=== PATIENT | male | born 1995 | race Caucasian/White ===

== ENCOUNTER 2018-02-06 14:13 | Inpatient (IN) | payer SELFPAY ==
[2018-02-06] MEDS: NS 1,000 ML IV (14:30)
[2018-02-06] MEDS: CHARCOAL ACTIVATED LIQUID 25 GM/120 ML BTL PO (14:30)
[2018-02-06 14:39] LABS: BASO % 0.4 % (0.0-1.0); EOS # 0.1 10^3/uL (0.0-0.50); EOS % 0.6 % (0.0-3.0); HEMATOCRIT 44.3 % (42.0-52.0); HEMOGLOBIN 14.9 g/dl (13.5-17.5); IMMATURE GRANULOCYTE % 0.2 % (0-3.0); LYMPH # 1.7 10^3/uL (1.5-6.5); LYMPH % 17.7 % (24.0-44.0); MEAN CORPUSCULAR HEMOGLOBIN 29.7 pg (27.0-33.0); MEAN CORPUSCULAR HGB CONC 33.6 g/dl (32.0-36.5); MEAN CORPUSCULAR VOLUME 88.2 fl (80.0-96.0); MONO # 0.8 10^3/uL (0.0-0.8); MONO % 8.4 % (0.0-5.0); NEUTROPHILS % 72.7 % (36.0-66.0); PLATELET COUNT, AUTOMATED 326 10^3/uL (150-450); RED BLOOD COUNT 5.02 10^6/uL (4.30-6.10); RED CELL DISTRIBUTION WIDTH 12.9 % (11.5-14.5); WHITE BLOOD COUNT 9.6 10^3/uL (4.0-10.0)
[2018-02-06 14:51] LABS: INR 0.92; PARTIAL THROMBOPLASTIN TIME 24.4 SECONDS (25.4-37.6); PROTHROMBIN TIME 12.5 SECONDS (12.1-14.4)
[2018-02-06 15:06] LABS: OSMOLALITY SERUM 295 MOSM/KG (275-295)
[2018-02-06 15:15] LABS: ACETAMINOPHEN LEVEL < 2.0 UG/ML (10.0-30.0); ALBUMIN 4.4 GM/DL (3.2-5.2); ALBUMIN/GLOBULIN RATIO 1.26 (1.00-1.93); ALKALINE PHOSPHATASE 61 U/L (45-117); ALT/SGPT 24 U/L (12-78); ANION GAP 9 MEQ/L (8-16); AST/SGOT 15 U/L (7-37); BILIRUBIN,DIRECT 0.2 MG/DL (0.0-0.2); BILIRUBIN,TOTAL 0.6 MG/DL (0.2-1.0); BLOOD UREA NITROGEN 17 MG/DL (7-18); CALCIUM LEVEL 9.3 MG/DL (8.5-10.1); CARBON DIOXIDE LEVEL 25 MEQ/L (21-32); CHLORIDE LEVEL 107 MEQ/L (98-107); CPK CREATINE PHOSPHOKINASE 142 U/L (39-308); CREATININE FOR GFR 0.96 MG/DL (0.70-1.30); ETHYL ALCOHOL (ETHANOL) 0.004 % (0.000-0.010); GLOMERULAR FILTRATION RATE > 60.0 (>60); GLUCOSE, FASTING 101 MG/DL (70-100); POTASSIUM SERUM 3.8 MEQ/L (3.5-5.1); SALICYLATE LEVEL < 1.7 MG/DL (5.0-30.0); SODIUM LEVEL 141 MEQ/L (136-145); TOTAL PROTEIN 7.9 GM/DL (6.4-8.2)
[2018-02-06] MEDS: LORazepam 2 MG/ML VIAL (J2060) IV ×3 (15:33→18:44)
[2018-02-06] MEDS ORDERED: OXAZEPAM 10 MG CAP PO (17:30)
[2018-02-06 17:39] LABS: AMPHETAMINES LEVEL URINE POSITIVE (NEGATIVE); BARBITURATES URINE NEGATIVE (NEGATIVE); BENZODIAZEPINES URINE NEGATIVE (NEGATIVE); CANNABINOIDS URINE NEGATIVE (NEGATIVE); COCAINE METABOLITE URINE NEGATIVE (NEGATIVE); METHADONE URINE NEGATIVE (NEGATIVE); OPIATES URINE NEGATIVE (NEGATIVE); PHENCYCLIDINE URINE NEGATIVE (NEGATIVE)
[2018-02-06 18:00] LABS: CPK CREATINE PHOSPHOKINASE 127 U/L (39-308); MB/CK RELATIVE INDEX 0.94 (< OR =4); TROPONIN I < 0.02 NG/ML (< 0.10)
[2018-02-06] MEDS: OXAZEPAM 10 MG CAP PO (18:28)
[2018-02-06] MEDS: MULTIVITAMIN -ADULT INJECTION 10 ML, THIAMINE INJection 100 MG, FOLIC ACID 1 MG in NS 1... IV (20:20)
[2018-02-06] MEDS: HEPARIN SOD (PORCINE) 5000 UNITS/ML VIAL SC (21:13)
[2018-02-06] MEDS: hydrALAZINE INJ 20 MG/ML VIAL IV (21:13)
[2018-02-06 23:25] LABS: CK-MB VALUE MASS < 1.0 NG/ML (<3.6); CPK CREATINE PHOSPHOKINASE 107 U/L (39-308); MB/CK RELATIVE INDEX 0.93 (< OR =4); TROPONIN I < 0.02 NG/ML (< 0.10)
[2018-02-07] MEDS: hydrALAZINE INJ 20 MG/ML VIAL IV ×6 (00:49→20:50)
[2018-02-07] MEDS: OXAZEPAM 10 MG CAP PO ×5 (00:49→23:38)
[2018-02-07] MEDS: KCL 20MEQ in NS 1000ML 1,000 ML IV ×3 (00:50→18:29)
[2018-02-07] MEDS: NICOTINE POLACRILEX 2 MG GUM PO ×2 (03:14→20:44)
[2018-02-07 06:54] LABS: HEMATOCRIT 43.5 % (42.0-52.0); HEMOGLOBIN 14.3 g/dl (13.5-17.5); MEAN CORPUSCULAR HEMOGLOBIN 29.5 pg (27.0-33.0); MEAN CORPUSCULAR HGB CONC 32.9 g/dl (32.0-36.5); MEAN CORPUSCULAR VOLUME 89.9 fl (80.0-96.0); PLATELET COUNT, AUTOMATED 333 10^3/uL (150-450); RED BLOOD COUNT 4.84 10^6/uL (4.30-6.10); RED CELL DISTRIBUTION WIDTH 12.9 % (11.5-14.5); WHITE BLOOD COUNT 11.7 10^3/uL (4.0-10.0)
[2018-02-07 07:13] LABS: ALBUMIN 4.2 GM/DL (3.2-5.2); ALKALINE PHOSPHATASE 56 U/L (45-117); ALT/SGPT 18 U/L (12-78); ANION GAP 10 MEQ/L (8-16); AST/SGOT 9 U/L (7-37); BILIRUBIN,TOTAL 0.5 MG/DL (0.2-1.0); BLOOD UREA NITROGEN 7 MG/DL (7-18); CALCIUM LEVEL 9.2 MG/DL (8.5-10.1); CARBON DIOXIDE LEVEL 23 MEQ/L (21-32); CHLORIDE LEVEL 108 MEQ/L (98-107); CREATININE FOR GFR 0.84 MG/DL (0.70-1.30); GLOMERULAR FILTRATION RATE > 60.0 (>60); GLUCOSE, FASTING 110 MG/DL (70-100); MAGNESIUM LEVEL 1.9 MG/DL (1.8-2.4); POTASSIUM SERUM 3.2 MEQ/L (3.5-5.1); SODIUM LEVEL 141 MEQ/L (136-145); TOTAL PROTEIN 7.2 GM/DL (6.4-8.2)
[2018-02-07] MEDS: HEPARIN SOD (PORCINE) 5000 UNITS/ML VIAL SC ×2 (07:54→20:41)
[2018-02-07] MEDS: MULTIVITAMINS/MINERALS THERAP 1 TAB PO (07:55)
[2018-02-07] MEDS: FOLIC ACID 1 MG TAB PO (07:55)
[2018-02-07] MEDS: THIAMINE 100 MG TAB PO (07:55)
[2018-02-07] MEDS: POTASSIUM CHLORIDE 10 MEQ SR TABLET PO (07:56)
[2018-02-07 09:17] LABS: CPK CREATINE PHOSPHOKINASE 147 U/L (39-308); MB/CK RELATIVE INDEX 0.68 (< OR =4); TROPONIN I < 0.02 NG/ML (< 0.10)
[2018-02-07] MEDS: LORazepam 2 MG/ML VIAL (J2060) IV (11:31)
[2018-02-08] MEDS ORDERED: SLF 3 ML SYR IV (00:30)
[2018-02-08] MEDS: hydrALAZINE INJ 20 MG/ML VIAL IV ×6 (01:00→21:00)
[2018-02-08] MEDS: LORazepam 2 MG/ML VIAL (J2060) IV ×2 (01:54→22:08)
[2018-02-08] MEDS: KCL 20MEQ in NS 1000ML 1,000 ML IV (02:58)
[2018-02-08 05:07] LABS: HEMATOCRIT 41.6 % (42.0-52.0); HEMOGLOBIN 13.6 g/dl (13.5-17.5); MEAN CORPUSCULAR HEMOGLOBIN 29.4 pg (27.0-33.0); MEAN CORPUSCULAR HGB CONC 32.7 g/dl (32.0-36.5); MEAN CORPUSCULAR VOLUME 89.8 fl (80.0-96.0); PLATELET COUNT, AUTOMATED 285 10^3/uL (150-450); RED BLOOD COUNT 4.63 10^6/uL (4.30-6.10); RED CELL DISTRIBUTION WIDTH 13.1 % (11.5-14.5); WHITE BLOOD COUNT 6.9 10^3/uL (4.0-10.0)
[2018-02-08] MEDS: OXAZEPAM 10 MG CAP PO ×4 (05:25→23:51)
[2018-02-08] MEDS: SLF 3 ML SYR IV ×3 (05:26→22:08)
[2018-02-08 05:55] LABS: ALBUMIN 3.8 GM/DL (3.2-5.2); ALBUMIN/GLOBULIN RATIO 1.19 (1.00-1.93); ALKALINE PHOSPHATASE 52 U/L (45-117); ALT/SGPT 17 U/L (12-78); ANION GAP 7 MEQ/L (8-16); AST/SGOT 8 U/L (7-37); BILIRUBIN,TOTAL 0.5 MG/DL (0.2-1.0); BLOOD UREA NITROGEN 4 MG/DL (7-18); CALCIUM LEVEL 9.1 MG/DL (8.5-10.1); CARBON DIOXIDE LEVEL 26 MEQ/L (21-32); CHLORIDE LEVEL 108 MEQ/L (98-107); GLOMERULAR FILTRATION RATE > 60.0 (>60); GLUCOSE, FASTING 97 MG/DL (70-100); MAGNESIUM LEVEL 2.1 MG/DL (1.8-2.4); SODIUM LEVEL 141 MEQ/L (136-145)
[2018-02-08] MEDS: THIAMINE 100 MG TAB PO (08:58)
[2018-02-08] MEDS: MULTIVITAMINS/MINERALS THERAP 1 TAB PO (08:58)
[2018-02-08] MEDS: HEPARIN SOD (PORCINE) 5000 UNITS/ML VIAL SC ×2 (08:58→20:43)
[2018-02-08] MEDS: FOLIC ACID 1 MG TAB PO (08:58)
[2018-02-09] MEDS: hydrALAZINE INJ 20 MG/ML VIAL IV ×6 (00:58→20:02)
[2018-02-09] MEDS: SLF 3 ML SYR IV ×3 (05:03→20:02)
[2018-02-09] MEDS: OXAZEPAM 10 MG CAP PO ×3 (05:03→17:53)
[2018-02-09 05:26] LABS: HEMATOCRIT 44.1 % (42.0-52.0); HEMOGLOBIN 14.4 g/dl (13.5-17.5); MEAN CORPUSCULAR HEMOGLOBIN 29.4 pg (27.0-33.0); MEAN CORPUSCULAR HGB CONC 32.7 g/dl (32.0-36.5); PLATELET COUNT, AUTOMATED 291 10^3/uL (150-450); RED CELL DISTRIBUTION WIDTH 12.8 % (11.5-14.5); WHITE BLOOD COUNT 7.5 10^3/uL (4.0-10.0)
[2018-02-09 05:55] LABS: ALBUMIN/GLOBULIN RATIO 1.18 (1.00-1.93); ALKALINE PHOSPHATASE 55 U/L (45-117); ALT/SGPT 19 U/L (12-78); ANION GAP 7 MEQ/L (8-16); AST/SGOT 10 U/L (7-37); BILIRUBIN,TOTAL 0.7 MG/DL (0.2-1.0); BLOOD UREA NITROGEN 9 MG/DL (7-18); CALCIUM LEVEL 9.6 MG/DL (8.5-10.1); CARBON DIOXIDE LEVEL 26 MEQ/L (21-32); CHLORIDE LEVEL 106 MEQ/L (98-107); CREATININE FOR GFR 0.84 MG/DL (0.70-1.30); GLOMERULAR FILTRATION RATE > 60.0 (>60); GLUCOSE, FASTING 97 MG/DL (70-100); MAGNESIUM LEVEL 2.2 MG/DL (1.8-2.4); POTASSIUM SERUM 3.8 MEQ/L (3.5-5.1); SODIUM LEVEL 139 MEQ/L (136-145); TOTAL PROTEIN 7.4 GM/DL (6.4-8.2)
[2018-02-09] MEDS: HEPARIN SOD (PORCINE) 5000 UNITS/ML VIAL SC ×2 (08:51→20:02)
[2018-02-09] MEDS: THIAMINE 100 MG TAB PO (09:00)
[2018-02-09] MEDS: FOLIC ACID 1 MG TAB PO (09:00)
[2018-02-09] MEDS: MULTIVITAMINS/MINERALS THERAP 1 TAB PO (09:00)
[2018-02-09] MEDS: diphenhydrAMINE 25 MG CAP PO (21:16)
[2018-02-10] MEDS: hydrALAZINE INJ 20 MG/ML VIAL IV ×4 (01:00→13:00)
[2018-02-10] MEDS: OXAZEPAM 10 MG CAP PO ×2 (01:16→10:50)
[2018-02-10] MEDS: SLF 3 ML SYR IV (05:19)
[2018-02-10 05:33] LABS: HEMATOCRIT 42.5 % (42.0-52.0); HEMOGLOBIN 14.1 g/dl (13.5-17.5); MEAN CORPUSCULAR HEMOGLOBIN 29.7 pg (27.0-33.0); MEAN CORPUSCULAR HGB CONC 33.2 g/dl (32.0-36.5); MEAN CORPUSCULAR VOLUME 89.7 fl (80.0-96.0); PLATELET COUNT, AUTOMATED 268 10^3/uL (150-450); RED BLOOD COUNT 4.74 10^6/uL (4.30-6.10); RED CELL DISTRIBUTION WIDTH 12.5 % (11.5-14.5); WHITE BLOOD COUNT 7.1 10^3/uL (4.0-10.0)
[2018-02-10 06:05] LABS: ALBUMIN 3.9 GM/DL (3.2-5.2); ALBUMIN/GLOBULIN RATIO 1.22 (1.00-1.93); ALKALINE PHOSPHATASE 53 U/L (45-117); ALT/SGPT 19 U/L (12-78); ANION GAP 9 MEQ/L (8-16); AST/SGOT 9 U/L (7-37); BILIRUBIN,TOTAL 0.4 MG/DL (0.2-1.0); BLOOD UREA NITROGEN 15 MG/DL (7-18); CALCIUM LEVEL 9.7 MG/DL (8.5-10.1); CARBON DIOXIDE LEVEL 26 MEQ/L (21-32); CHLORIDE LEVEL 105 MEQ/L (98-107); CREATININE FOR GFR 0.93 MG/DL (0.70-1.30); GLOMERULAR FILTRATION RATE > 60.0 (>60); GLUCOSE, FASTING 113 MG/DL (70-100); MAGNESIUM LEVEL 2.1 MG/DL (1.8-2.4); POTASSIUM SERUM 3.6 MEQ/L (3.5-5.1); SODIUM LEVEL 140 MEQ/L (136-145); TOTAL PROTEIN 7.1 GM/DL (6.4-8.2)
[2018-02-10] MEDS: MULTIVITAMINS/MINERALS THERAP 1 TAB PO (08:26)
[2018-02-10] MEDS: THIAMINE 100 MG TAB PO (08:27)
[2018-02-10] MEDS: FOLIC ACID 1 MG TAB PO (08:27)
[2018-02-10] MEDS: HEPARIN SOD (PORCINE) 5000 UNITS/ML VIAL SC (08:29)
[2018-02-11 00:07] LABS: MYOGLOBIN URINE QUANTITATIVE 3 ng/mL (0-13)
== END 2018-02-10 16:29 | DRG 812 ==
LOC: M ED 14:13 → M ED INP 17:21 → M PCU 21:39
DX: T43.602A Poisoning by unspecified psychostimulants, intentional self-harm, initial encounter (principal); F10.10 Alcohol abuse, uncomplicated; F17.200 Nicotine dependence, unspecified, uncomplicated; F43.10 Post-traumatic stress disorder, unspecified; F90.9 Attention-deficit hyperactivity disorder, unspecified type; Z79.899 Other long term (current) drug therapy; Y92.009 Unspecified place in unspecified non-institutional (private) residence as the place of occurrence of the external cause

== ENCOUNTER 2018-02-10 16:38 | Inpatient (IN) | payer MEDICAID, SELFPAY ==
[~2018-02-10 16:38] MED LIST: ACETAMINOPHEN TAB 650MG DOSE (2X325MG) PO; MAALOX 30 ML SUSP *UDC PO; MOM 30ML SUSPENSION UDC PO
[2018-02-10] MEDS: THIAMINE 100 MG TAB PO (18:56)
[2018-02-10] MEDS: NICOTINE 14 MG/24 HR TRANSDERMAL TD (18:58)
[2018-02-10] MEDS: traZODone 50 MG TAB PO ×2 (21:49→23:39)
[2018-02-10] MEDS: hydrOXYzine 50 MG TAB PO (23:39)
[2018-02-11] MEDS: MULTIVITAMINS/MINERALS THERAP 1 TAB PO (09:28)
[2018-02-11] MEDS: THIAMINE 100 MG TAB PO ×2 (09:28→21:42)
[2018-02-11] MEDS: NICOTINE 14 MG/24 HR TRANSDERMAL TD (09:28)
[2018-02-11] MEDS: FOLIC ACID 1 MG TAB PO (09:28)
[2018-02-11] MEDS: traZODone 50 MG TAB PO (21:42)
[2018-02-12] MEDS: THIAMINE 100 MG TAB PO ×2 (08:39→21:27)
[2018-02-12] MEDS: FOLIC ACID 1 MG TAB PO (08:39)
[2018-02-12] MEDS: NICOTINE 14 MG/24 HR TRANSDERMAL TD (08:39)
[2018-02-12] MEDS: MULTIVITAMINS/MINERALS THERAP 1 TAB PO (08:39)
[2018-02-12] MEDS: SERTRALINE HCL 50 MG TAB PO (21:27)
[2018-02-12] MEDS: hydrOXYzine 50 MG TAB PO (22:58)
[2018-02-12] MEDS: traZODone 50 MG TAB PO (22:58)
[2018-02-13] MEDS: THIAMINE 100 MG TAB PO (08:21)
[2018-02-13] MEDS: FOLIC ACID 1 MG TAB PO (08:21)
[2018-02-13] MEDS: MULTIVITAMINS/MINERALS THERAP 1 TAB PO (08:21)
[2018-02-13] MEDS: ATOMOXETINE HCL 40 MG CAP (STRATTERA) PO (08:21)
[2018-02-13] MEDS: NICOTINE 14 MG/24 HR TRANSDERMAL TD (08:21)
== END 2018-02-13 13:50 | disposition home or self-care (01) | DRG 754 ==
LOC: M PSY 16:38
DX: F32.9 Major depressive disorder, single episode, unspecified (principal); F33.2 Major depressive disorder, recurrent severe without psychotic features; F43.10 Post-traumatic stress disorder, unspecified; F90.9 Attention-deficit hyperactivity disorder, unspecified type; F17.200 Nicotine dependence, unspecified, uncomplicated